=== PATIENT | male | born 1960 | race Caucasian/White ===

== ENCOUNTER → 2024-04-30 | Outpatient (CLI) | payer MEDICARE ==
[2024-04-30 10:57] LABS: INR 0.9 (<1.2); Partial Thromboplastin Time 25.2 sec (22.0-30.0); Prothrombin Time 10.5 sec (10.0-12.5)
== END | disposition home or self-care (01) ==
LOC: LABPAT 09:34
PROVIDERS: ATTEND Orthopaedic Surgery
DX: Z01.812 Encounter for preprocedural laboratory examination (principal); M17.11 Unilateral primary osteoarthritis, right knee; Z22.322 Carrier or suspected carrier of Methicillin resistant Staphylococcus aureus
CPT/HCPCS: 85610; 85730; 87070

== ENCOUNTER → 2024-04-30 | Outpatient (CLI) | payer MEDICARE ==
--- NOTE | 2024-04-30 09:08 | CT ---
EXAMINATION TYPE: CT right knee - JONATHAN Protocol DATE OF EXAM: 04/30/2024 8:56 AM COMPARISON: None. CLINICAL INDICATION: Male, 63 years old with history of M17.11 primary OA R knee; PHH, RT knee JONATHAN p rotocol, pain, TECHNIQUE: Axial images were obtained of the bilateral hips, knee and bilateral ankles: CT right kne e - JONATHNA Protocol, Additional coronal and sagittal reformatted images and soft tissue and bone window were obtained for review of the bilateral hips, knee and bilateral ankles. Contrast used: mL of , (None if empty) Oral contrast used: (None if empty) CT DLP: 900 mGycm, Automated exposure control for dose reduction was used. FINDINGS: The visualized portion of the hips demonstrate mild osteoarthrosis changes with osteophyte formation of the acetabulum. No acute intrapelvic process. The bony structures of the pelvis are intact. The visualized knee demonstrates osteophyte formation of the tibial plateau, the patella and femoral condyles. There is joint space narrowing and subchondral sclerosis and subchondral cystic changes pr edominantly in the medial aspect. Subchondral sclerosis also present on the lateral aspect of the kne e. No evidence of fracture. The visualized ankles demonstrates multifocal osteoarthrosis changes with osteophyte formation and mi ld joint space narrowing. No evidence of fractures. Other: Scattered colonic diverticulosis. Postsurgical changes to the prostate gland. Multiple surgica l clips present. IMPRESSION: Moderate to severe right knee osteoarthrosis. [facility], , 04/30/2024 9:06 AM
== END | disposition home or self-care (01) ==
LOC: RADCTMAIN 07:54
PROVIDERS: ATTEND Orthopaedic Surgery
DX: M17.11 Unilateral primary osteoarthritis, right knee (principal); K57.30 Diverticulosis of large intestine without perforation or abscess without bleeding

== ENCOUNTER 2024-05-25 05:36 | Day surgery (SDC) | payer MEDICARE ==
[2024-05-22 11:31] VITALS: BMI 26.4
[2024-05-25] MEDS ORDERED: TRANEXAMIC 1,000 MG/100ML-NACL 1,000 MG in SALINE 1 100ML.BAG IVPB PRN (06:00)
[2024-05-25] MEDS ORDERED: TRANEXAMIC 1,000 MG/100ML-NACL 1,000 MG in SALINE 1 100ML.BAG IV PRN (06:00)
[2024-05-25] MEDS: LACTATED RINGERS 1,000 ML IV ONE (06:10)
[2024-05-25 06:36] LABS: HCT 49.7 % (39.0-53.0); HGB 16.5 gm/dL (13.0-17.5); MCHC 33.1 g/dL (31.0-37.0); MCV 90.5 fL (80.0-100.0); Mean Platelet Volume 7.2; Platelet Count 311 k/uL (150-450); RDW 14.2 % (11.5-15.5); WBC 9.1 k/uL (3.8-10.6)
[2024-05-25] MEDS: LACTATED RINGERS 1,000 ML IV SCH (06:37)
[2024-05-25] MEDS: VANCOMYCIN 1,000 MG in SODIUM CHLORIDE 0.9% 250 ML IVPB PRN (06:38)
[2024-05-25] MEDS: ACETAMINOPHEN TAB 500 MG TAB PO PRN (06:43)
[2024-05-25] MEDS: oxyCODONE ER 10 MG TAB.ER.12H PO PRN (06:43)
[2024-05-25] MEDS: DOCUSATE 100 MG CAP PO PRN (06:43)
[2024-05-25] MEDS: MIDAZOLAM 2 MG/2 ML VIAL IV PRN (06:47)
[2024-05-25] MEDS: ONDANSETRON 4 MG/2 ML VIAL IVP PRN (06:57)
[2024-05-25] MEDS: KETOROLAC 15 MG/ML 1 ML VIAL IVP PRN (06:57)
[2024-05-25] MEDS: FAMOTIDINE 20 MG/2 ML VIAL IVP PRN (06:57)
[2024-05-25] MEDS: DEXAMETHASONE SOD PHOSPHATE 10 MG/ML 1 ML VIAL IV PRN (06:57)
[2024-05-25] MEDS ORDERED: HYDROmorphone 0.5 MG/0.5 ML SYRINGE IVP PRN ×3 (07:00→09:13)
[2024-05-25] MEDS ORDERED: SODIUM CHLORIDE 0.9% (PF) 10 ML VIAL ONE (07:02)
[2024-05-25] MEDS ORDERED: DEXAMETHASONE SOD PHOSPHATE 4 MG/ML 1 ML VIAL ONE (07:02)
[2024-05-25] MEDS ORDERED: SUCCINYLCHOLINE CHLORIDE 200 MG/10 ML VIAL IV ONE (07:02)
[2024-05-25] MEDS ORDERED: PROPOFOL 10 MG/ML 20 ML VIAL IV ONE (07:02)
[2024-05-25] MEDS ORDERED: HYDROmorphone (PF) 1 MG/ML ONE (07:02)
[2024-05-25] MEDS ORDERED: ROCURONIUM 10 MG/ML (5 ML VIAL) IV ONE (07:02)
[2024-05-25] MEDS ORDERED: LIDOCAINE 1% INJ 10MG/ML (20 ML MDV) ONE (07:02)
[2024-05-25] MEDS ORDERED: GLYCOPYRROLATE 0.2 MG/ML 2 ML VIAL ONE (07:02)
[2024-05-25] MEDS ORDERED: fentaNYL (PF) 50 MCG/ML 2 ML AMP ONE (07:02)
[2024-05-25] MEDS ORDERED: ROPIVACAINE 5 MG/ML 30 ML VIAL ONE (07:02)
[2024-05-25] MEDS ORDERED: TRANEXAMIC 1,000 MG/100ML-NACL PREMIX BAG ONE (07:02)
[2024-05-25] MEDS ORDERED: NEOSTIGMINE 1 MG/ML 10 ML VIAL ONE (07:02)
--- NOTE | 2024-05-25 07:21 | P.ANPRN ---
Procedure Note - Anesthesia - Nerve Block Performed Right Adductor Canal Single Time Out Performed: Yes Date of Procedure: 05/25/24 Procedure Start Time: 06:46 Procedure Stop Time: 06:51 Location of Patient: PreOp Indication: Acute Post-Operative Pain, Requested by Surgeon Sedation Type: Sedate with meaningful contact maintained Preparation: Sterile Prep Position: Supine Needle Types: Pajunk Needle Gauge: 21 Ultrasound used to visualize needle placement: Yes Ultrasound used to observe medication spread: Yes Injectate: 0.5% Ropivacaine (see comment for volume) (20 ml + 10 ml NS+ 4 mg Dexamethasone) Blood Aspirated: No Pain Paresthesia on Injection Noted: No Resistance on Injection: Normal Image Stored and Saved: Yes Events: Uneventful and Well Tolerated
--- NOTE | 2024-05-25 07:22 | P.ANPRN ---
Procedure Note - Anesthesia - Nerve Block Performed Right iPack Single Time Out Performed: Yes Date of Procedure: 05/25/24 Procedure Start Time: 06:52 Procedure Stop Time: 06:57 Location of Patient: PreOp Indication: Acute Post-Operative Pain, Requested by Surgeon Sedation Type: Sedate with meaningful contact maintained Preparation: Sterile Prep Position: Left Lateral Needle Types: Pajunk Needle Gauge: 21 Ultrasound used to visualize needle placement: Yes Ultrasound used to observe medication spread: Yes Injectate: 0.5% Ropivacaine (see comment for volume) (20 ml + 10 ml NS + 4 mg Dexamethasone) Blood Aspirated: No Pain Paresthesia on Injection Noted: No Resistance on Injection: Normal Image Stored and Saved: Yes Events: Uneventful and Well Tolerated
[2024-05-25] MEDS: ROPIVACAINE/EPI/CLONIDINE/KET 50 ML SYRINGE MISCELLANE PRN (07:30)
--- NOTE | 2024-05-25 09:04 | P.OP ---
Date of Procedure: 05/25/24 Preoperative Diagnosis: 1. Right varus knee osteoarthritis Postoperative Diagnosis: Same Procedure(s) Performed: 1. Right total knee arthroplasty 2. Computer assisted musculoskeletal navigation using CT/MRI images Implants: 1. [place] [employer] CR Femur Size #5 2. [place] [employer] [place] Tibial Base Size #5 3. [place] [employer] CS poly Size #9-mm 4. [place] [employer] all poly patella, Size #35 Anesthesia: MAMIE, regional Surgeon: Aquiles Higgins Stonemason Apprentice #1: Joey De Los Santos Estimated Blood Loss (ml): 100 IV fluids (ml): 800 Pathology: none sent Condition: stable Disposition: PACU Indications for Procedure: I had a long discussion with the patient in the office on treatment of his knee arthritis. He failed over 6 months of nonsurgical treatment and requested proceeding with surgery. We discussed both partial and total knee replacement. We had a long discussion on the expanding indications for partial knee replacement. We also discussed outcomes and comparative outcomes between total and partial knee replacements. My recommendation was to proceed with a partial versus total knee replacement depending on the severity and degree of arthritis throughout his knee. He understands all of this and agrees with proceeding. I met with the patient preoperatively in the office setting and discussed treatment of their symptomatic knee arthritis. They failed a long course of non surgical treatment and elected to proceed with an elective total knee replacement. I discussed the potential risks and complications at length and gave them ample time to ask questions. Risks discussed included: risks from anesthesia, superficial site surgical infection, acute and/or chronic periprosthetic joint infection, delayed wound healing, drainage, wound necrosis, instability, stiffness, stiffness requiring manipulation and/or revision surgery, damage to local blood vessels or nerves, aseptic loosening of the implants, extensor mechanism issues including disruption, patellar maltracking, avascular necrosis etc., continued or worsened knee pain, generalized dissatisfaction with surgical outcome, need for revision surgery, an inability to regain preinjury level of function, DVT, PE, other medical complications, and possibly loss of life or limb. The patient voiced their understanding that while these are the most common complications other less common complications are possible. They provided both their verbal and written consent to go forward with surgery. Operative Findings: Severe medial and patellofemoral arthritis, full-thickness full-thickness cartilage loss in the lateral compartment, and diffuse inflamed synovium Description of Procedure: The patient was identified in preoperative holding and the correct operative extremity was verified and marked with a marker. I reviewed the consent form with the patient at length. All of their questions were answered. The patient was given a block by anesthesia. They were then brought back to the operating room. They were transferred onto the operating room table where a general anesthetic, preoperative antibiotics, and tranexamic acid were administered by anesthesia. A tourniquet was applied to the proximal aspect of the operative extremity. The contralateral extremity was padded under the heel and secured to the operating room table with a nonsterile blue towel and tape. The ipsilateral arm was carefully draped across the patient's chest and secured with a pillow and foam. A post was applied over the lateral aspect of the ipsilateral thigh and a bolster was placed under the ipsilateral foot. I verified that the operative extremity was stable and the knee was flexed to 90. The operative extremity was then placed in a leg bernardo, nonsterile drapes were applied, and the extremity was prepped and draped sterilely in the standard sterile fashion. Prior to starting surgery timeout was performed identifying the correct patient, operative extremity, and procedure. The leg was then elevated, exsanguinated with an Esmarch bandage, and the tourniquet was inflated. An anterior midline incision was made sharply with a scalpel. Once I had dis sected deep to the superficial fascial layer medial and lateral flaps were elevated. A medial parapatellar arthrotomy was created. Upon opening the knee joint there were diffuse arthritic changes in all 3 compartments. The anterior horn of the medial meniscus were sharply released and a medial release was performed around the posterior medial corner of the knee to facilitate retractor placement. The fat pad was excised with electrocautery. The patella was found to be severely arthritic and a provisional cut was made with a sagittal saw to facilitate mobilization of the extensor mechanism during the procedure. Remnants of the ACL and PCL were then excised from the notch. 4 mm pins were then placed within the incision in the medial distal femur and proximal tibia. Arrays were applied to the pins and I verified they were completely tightened. The knee was then registered with the Nuvo[employer] robot and manipulations in implant position were made to balance the knee and opitmize implant position. Using the Nuvo[employer] robotic saw all cuts were made in accordance with our plan. After all bony fragments had been removed the cuts were verified with the planar probe. The tibia was then subluxed forward and sized. The knee was brought into flexion and a lamina open shank coverer was placed to allow removal of the meniscal remnants both medially and laterally as well as posterior osteophytes. Local anesthetic was then infiltrated around the joint capsule. Trial implants were then placed within the knee. Range of motion and collateral ligament tension was then evaluated. Adjustments in implant size and position were then made accordingly. Once the knee was felt to be appropriately balanced the Can pins were removed. The patella was then recut, sized, and punched. A trial patellar button was then placed. With the trial components in place, the patella tracked midline. The femur was then drilled and the trial component removed. The trial tibial component was then appropriately rotated, pinned, and prepared for the keel. All trial components were then removed from the knee. The knee was thoroughly irrigated with pulsatile lavage. Cement was prepared via vacuum mixing in a marcelina wl on the back table. I then hand pressurized cement into the femur and tibia and placed the implants beginning with the tibial base tray and poly liner, femoral component, and finally the patellar button. All extruded cement was removed including from the pin sites. Once the cement had hardened the knee was evaluated one final time with the final polyethylene liner in place. The knee had full extension and flexion and felt stable to varus and valgus stress throughout the arc of motion. The tourniquet was released and with the tourniquet down the patella tracked midline. All bleeders were controlled with electrocautery. The knee was then soaked for 3 minutes with a dilute Betadine soak. The knee was thoroughly irrigated using 3 L of sterile saline and pulsatile lavage. A deep drain was placed. The extensor mechanism was then reapproximated using pop off Vicryl sutures followed by a running barbed suture. The knee was then closed in layers with a 0 strata fix for the deep fascial layer, 2-0 strata fix for the superficial subcutaneous layer and Monocryl and Steri-Strips for the skin. A sterile dressing and drain sponge were applied. I verified that all instrument, sponge, and sharp counts were correct. The patient was then transferred off the operating room table, extubated, and brought to recovery having tolerated the procedure well. Joey De Los Santos PA-C was required as a skilled supply chain assistant due to the complexity of surgery for patient positioning, draping, exposure, retraction, closure of wound and application of dressing. PLAN: The patient can weight-bear as tolerated on the operative extremity. DVT prophylaxis with aspirin 81 mg twice a day based on preoperative risk stratification. Follow-up in the office in 2 weeks for wound check and x-rays of the knee including an AP and lateral.
[2024-05-25] MEDS ORDERED: NA PHOS,M-B/NA PHOS,DI-BA 133 ML ENEMA RECTAL PRN (09:13)
[2024-05-25] MEDS ORDERED: hydrOXYzine pamoate 25 MG CAP PO PRN (09:13)
[2024-05-25] MEDS ORDERED: ONDANSETRON 4 MG/2 ML VIAL IVP PRN (09:13)
[2024-05-25] MEDS ORDERED: ACETAMINOPHEN TAB 325 MG TAB PO PRN (09:13)
[2024-05-25] MEDS ORDERED: HYDROcodone/APAP 5-325MG 1 EACH TAB PO PRN (09:13)
[2024-05-25] MEDS ORDERED: NALOXONE 0.4 MG/ML 1 ML VIAL IV PRN (09:13)
[2024-05-25] MEDS: IV FLUID CONTINUATION 1,000 ML IV ONE (09:20)
--- NOTE | 2024-05-25 10:02 | XR ---
EXAMINATION TYPE: XR knee limited RT DATE OF EXAM: 05/25/2024 9:35 AM COMPARISON: Recent CT April 30, 2024 CLINICAL INDICATION: Male, 63 years old with history of Evaluation for Postop abnormality and alignme nt, pain TECHNIQUE: Portable AP and crosstable lateral views of the right knee are obtained immediately posto peratively. FINDINGS: Metallic hardware from total right knee arthroplasty is seen and appears satisfactory in alignment and position. There is evidence of recent surgery and soft tissue swallowing noted. IMPRESSION: METALLIC HARDWARE FROM TOTAL RIGHT KNEE ARTHROPLASTY IS SATISFACTORY IN ALIGNMENT. [facility], , 05/25/2024 9:59 AM
[2024-05-25] MEDS ORDERED: ALPRAZolam 0.25 MG TAB PO PRN (12:40)
[2024-05-25] MEDS: SODIUM CHLORIDE 0.9% 1,000 ML IV SCH (14:24)
[2024-05-25] MEDS: ASPIRIN 81 MG PO SCH (20:30)
[2024-05-25] MEDS: SENNOSIDES-DOCUSATE SODIUM 1 EACH TAB PO SCH (20:30)
[2024-05-25] MEDS: ATORVASTATIN 10 MG TAB PO SCH (20:30)
[2024-05-25] MEDS: HYDROcodone/APAP 10-325MG 1 EACH TAB PO PRN (20:30)
--- NOTE | 2024-05-25 22:23 | P.CONS ---
History of Present Illness - Reason for Consult Consult date: 05/25/24 Medical management Requesting physician: Joey De Los Santos - Chief Complaint Admitted post right knee replacement x 1 day - History of Present Illness Patient is a 63-year-old male with a past medical history significant for hypertension hyperlipidemia osteoarthritis prostate cancer status post prostatectomy presenting to the hospital for right knee arthroplasty patient did have procedure completed with Dr. Higgins this morning subsequently patient be admitted to hospital for postop management, medicine was consulted for management of his medical condition. Patient did have a history of hypertension which is currently stable and the patient has been on combination of amlodipine 10 mg daily and enalapril 10 mg daily. Patient does have a history of hyperlipidemia that is currently stable for the patient has been on simvastatin 20 mg daily. Patient did have a history of gastroesophageal reflux disease for the patient has been on Protonix currently denies having any worsening reflux or dysphagia. Patient with a history of anxiety for the patient has been on Xanax 0.25 mg every 8 hour currently denies any worsening anxiety. Patient is status post right knee arthroplasty pain is currently controlled denies any headache or URI symptoms no chest pain shortness of breath or cough no nausea vomiting no abdominal pain or diarrhea Review of Systems Positive point and negatives has been mentioned in the HPI, complete review of systems was performed and all other systems are negative Past Medical History Past Medical History: Cancer, Hearing Disorder / Deafness, Hyperlipidemia, Hyp ertension, Osteoarthritis (OA) Additional Past Medical History / Comment(s): Hx prostate cancer with surgery 15 yrs ago. Mild hearing loss. History of Any Multi-Drug Resistant Organisms: None Reported Past Surgical History: Prostate Surgery Additional Past Surgical History / Comment(s): Colonoscopy, prostatectomy. Past Anesthesia/Blood Transfusion Reactions: No Reported Reaction Smoking Status: Current every day smoker - Past Family History Mother Family Medical History: No Reported History Medications and Allergies Home Medications Medication Instructions Recorded Confirmed Type ALPRAZolam [Xanax] 0.25 mg PO TID PRN 05/22/24 05/25/24 History Enalapril Maleate 10 mg PO DAILY 05/22/24 05/25/24 History Mupirocin 2% Oint [Bactroban 2% 1 applic NASAL BID 05/22/24 05/25/24 History Oint] Simvastatin [Zocor] 20 mg PO HS 05/22/24 05/25/24 History amLODIPine BESYLATE 10 mg PO DAILY 05/22/24 05/25/24 History Aspirin 81 mg PO BID #60 tab 05/25/24 Rx Diclofenac Sodium [Voltaren] 75 mg PO BID #60 tab 05/25/24 Rx HYDROcodone/APAP 5-325MG [[place] 5] 1 - 2 each PO Q6HR PRN #56 tab 05/25/24 Rx Omeprazole 20 mg PO DAILY #30 tab 05/25/24 Rx Ondansetron [Zofran] 4 mg PO Q6HR PRN #30 tab 05/25/24 Rx Sennosides-Docusate Sodium 1 tab PO BID PRN #60 tablet 05/25/24 Rx [Senokot-S] Allergies Allergy/AdvReac Type Severity Reaction Status Date / Time No Known Allergies Allergy Verified 05/25/24 06:12 Physical Exam Vitals: Vital Signs Temp Pulse Resp BP Pulse Ox 05/25/24 12:12 93 18 127/72 95 05/25/24 11:42 90 16 128/75 96 05/25/24 11:12 70 16 128/77 97 05/25/24 10:57 81 14 124/72 97 05/25/24 10:42 80 14 130/67 97 05/25/24 10:26 86 12 131/68 96 05/25/24 10:11 87 12 123/61 96 05/25/24 09:56 82 14 131/66 94 L 05/25/24 09:41 87 12 137/66 93 L 05/25/24 09:26 88 16 144/81 96 05/25/24 09:11 98.1 F 109 H 16 143/88 97 05/25/24 06:59 84 16 144/73 97 05/25/24 06:12 97.6 F 82 16 143/76 96 Intake and Output 05/24/24 05/25/24 05/25/24 22:59 06:59 14:59 Intake Total 200 850 Output Total 100 Balance 200 750 Intake: IV 200 850 Output: Estimated Blood Loss 100 Other: Weight 86.5 kg GENERAL DESCRIPTION: Elderly male lying in bed, no distress. No tachypnea or accessory muscle of respiration use. HEENT: Shows Pallor , no scleral icterus. Oral mucous membrane is dry. NECK: Trachea central, no thyromegaly. LUNGS: Unlabored breathing. Clear to auscultation anteriorly. No wheeze or crackle. HEART: S1, S2, regular rate and rhythm. No loud murmur ABDOMEN: Soft, no tenderness , guarding or rigidity, no organomegaly EXTREMITIES: Right knee is currently dressed in OR dressing SKIN: No rash, no masses palpable. NEUROLOGICAL: The patient is awake, alert, oriented x3, mood and affect normal. Results CBC & Chem 7: 05/25/24 06:13 Assessment and Plan (1) Osteoarthritis of right knee Current Visit: Yes Status: Acute Code(s): M17.11 - UNILATERAL PRIMARY OSTEOARTHRITIS, RIGHT KNEE SNOMED Code(s): 208076741671077 (2) Hypertension Current Visit: Yes Status: Acute Code(s): I10 - ESSENTIAL (PRIMARY) HYPERTENSION SNOMED Code(s): 86971172 (3) Hyperlipidemia Current Visit: Yes Status: Acute Code(s): E78.5 - HYPERLIPIDEMIA, UNSPECIFIED SNOMED Code(s): 78325422 (4) Anxiety Current Visit: Yes Status: Acute Code(s): F41.9 - ANXIETY DISORDER, UNSPECIFIED SNOMED Code(s): 80552210 (5) Gastroesophageal reflux disease Current Visit: Yes Status: Acute Code(s): K21.9 - GASTRO-ESOPHAGEAL REFLUX DISEASE WITHOUT ESOPHAGITIS SNOMED Code(s): 604169183 Plan: 1patient electively admitted to hospital post right knee replacement in this patient pain is currently controlled we will continue on [place] as needed and Tylenol for mild pain will receive perioperatively cefazolin per schedule. 2patient with history of hypertension blood pressure stable patient has been started on amlodipine and enalapril. 3hyperlipidemia with the patient will be continuing statin that has been switched to Lipitor while inpatient. 4anxiety will use Xanax as needed 5- GERD patient will be treated with a PPI adjusted to Protonix because of formulary We will follow on clinical condition and cultures to further adjust medication if needed Thank you for this consultation we will follow the patient along with you Dictation was produced using Alphionation software. please excuse any grammatical, word or spelling errors. Time with Patient: Greater than 30
[2024-05-26] MEDS: HYDROmorphone 0.5 MG/0.5 ML SYRINGE IVP PRN (02:08)
[2024-05-26] MEDS: PANTOPRAZOLE 40 MG TABLET PO SCH (06:06)
--- NOTE | 2024-05-26 07:50 | P.DS ---
Providers Date of admission: 05/25/2024 Attending physician: Aquiles Higgins Consults: 05/25/24 09:13 Consult Physician Routine Consulting Provider: Dominic Cheng Consult Reason/Comments: Postop medical management Do you want consulting provider notified?: Yes Primary care physician: Dominic Cheng Hospital Course: He is a very pleasant 63-year-old male who was admitted under my care yesterday after an uncomplicated total knee replacement. The patient was transferred to the orthopedic floor in stable condition following surgery. He received 2 doses of postoperative antibiotics. He was transitioned from IV to oral pain medication. He was seen by internal medicine who assisted with his perioperative medical management. I saw the patient on postoperative day #1 and he was doing well. The dressing over the anterior aspect of his right knee was intact with no drainage or strikethrough. His thigh was soft and compressible. Femoral nerve function was intact. He was able to actively plantarflex and dorsiflex his ankle and his toes. He worked with physical therapy and did well. He was ultimately cleared for discharge home. Patient Condition at Discharge: Good Plan - Discharge Summary Discharge Rx Participant: Yes New Discharge Prescriptions: New Aspirin 81 mg PO BID #60 tab Diclofenac Sodium [Voltaren] 75 mg PO BID #60 tab HYDROcodone/APAP 5-325MG [[place] 5] 1 - 2 each PO Q6HR PRN #56 tab PRN Reason: Pain Omeprazole 20 mg PO DAILY #30 tab Sennosides-Docusate Sodium [Senokot-S] 1 tab PO BID PRN #60 tablet PRN Reason: Constipation Ondansetron [Zofran] 4 mg PO Q6HR PRN #30 tab PRN Reason: Nausea No Action ALPRAZolam [Xanax] 0.25 mg PO TID PRN PRN Reason: Anxiety amLODIPine BESYLATE 10 mg PO DAILY Mupirocin 2% Oint [Bactroban 2% Oint] 1 applic NASAL BID Simvastatin [Zocor] 20 mg PO HS Enalapril Maleate 10 mg PO DAILY Discharge Medication List ALPRAZolam [Xanax] 0.25 mg PO TID PRN 05/22/24 [History] Enalapril Maleate 10 mg PO DAILY 05/22/24 [History] Mupirocin 2% Oint [Bactroban 2% Oint] 1 applic NASAL BID 05/22/24 [History] Simvastatin [Zocor] 20 mg PO HS 05/22/24 [History] amLODIPine BESYLATE 10 mg PO DAILY 05/22/24 [History] Aspirin 81 mg PO BID #60 tab 05/25/24 [Rx] Diclofenac Sodium [Voltaren] 75 mg PO BID #60 tab 05/25/24 [Rx] HYDROcodone/APAP 5-325MG [[place] 5] 1 - 2 each PO Q6HR PRN #56 tab 05/25/24 [Rx] Omeprazole 20 mg PO DAILY #30 tab 05/25/24 [Rx] Ondansetron [Zofran] 4 mg PO Q6HR PRN #30 tab 05/25/24 [Rx] Sennosides-Docusate Sodium [Senokot-S] 1 tab PO BID PRN #60 tablet 05/25/24 [Rx] Follow up Appointment(s)/Referral(s): Aquiles Higgins MD [Medical Doctor] - 2 Weeks Activity/Diet/Wound Care/Special Instructions: 1. Weight-bear as tolerated on your operative extremity unless instructed other dong. Use a walker or other assistive device to ambulate. 2. Leave surgical dressing in place. If your dressing becomes saturated with blood, there is drainage, or the dressing becomes loose please contact the office. 3. It is okay to shower with your surgical dressing, but do not submerge in water (no hot tubs, bath's, swimming etc.) 4. Take your blood clot prevention medication as prescribed (aspirin, Eliquis, Xarelto, and Plavix are commonly prescribed medications for blood clot prevention) 5. While taking [place] or Percocet for pain take a stool softener (Ex: Colace) and drink lots of water. 6. Keep all follow-up appointments as scheduled. You will usually be seen in 1-2 weeks following surgery. 7. Please contact the office with any questions or concerns [phone] Discharge Disposition: HOME WITH HOME HEALTH SERVICES
[2024-05-26] MEDS: lisinopriL 10 MG TAB PO SCH (08:16)
[2024-05-26] MEDS: amLODIPine 10 MG TAB PO SCH (08:16)
[2024-05-26 08:52] VITALS: BP 161/81; PULSE 77; RESP 18; TEMP 98.4
[2024-05-26 09:25] LABS: HCT 39.2 % (39.6-50.0); MCH 29.8 pg (27.0-32.0); MCHC 33.2 g/dL (32.0-37.0); MCV 89.9 FL (80.0-97.0); Mean Platelet Volume 10.5 FL (9.5-12.2); NRBC Per 100 WBC 0 X 10*3/uL (0.00-0.01); Platelet Count 306 X 10*3/uL (140-440); RBC 4.36 X 10*6/uL (4.40-5.60); RDW 14.2 % (11.5-14.5); WBC 16.93 X 10*3/uL (4.50-10.00)
[2024-05-26 10:02] LABS: Basophils # (A) 0.04 X 10*3/uL (0.00-0.10); Basophils % (A) 0.2 %; Eosinophils # (A) 0.01 X 10*3/uL (0.04-0.35); Eosinophils % (A) 0.1 %; Lymphocytes # (A) 1.46 X 10*3/uL (0.90-5.00); Lymphocytes % (A) 8.6 %; Monocytes # (A) 2.19 X 10*3/uL (0.20-1.00); Monocytes % (A) 12.9 %; Neutrophils # (A) 13.16 X 10*3/uL (1.80-7.70); Neutrophils % (A) 77.8 %
== END 2024-05-26 11:54 | disposition home health service (06) ==
LOC: OR 05:36 → 4SSUR 12:33 → OR 05-26 11:54
PROVIDERS: ATTEND Orthopaedic Surgery
DX: M17.0 Bilateral primary osteoarthritis of knee (principal); M21.161 Varus deformity, not elsewhere classified, right knee; G89.18 Other acute postprocedural pain; I10 Essential (primary) hypertension; E78.5 Hyperlipidemia, unspecified; K21.9 Gastro-esophageal reflux disease without esophagitis; F41.9 Anxiety disorder, unspecified; Z79.82 Long term (current) use of aspirin; Z79.1 Long term (current) use of non-steroidal anti-inflammatories (NSAID); Z79.899 Other long term (current) drug therapy; Z87.891 Personal history of nicotine dependence; Z85.46 Personal history of malignant neoplasm of prostate
CPT/HCPCS: 0055T; 27447; S2900; 64447; 64999; 85025; 85027